=== PATIENT | male | born 1965 ===

== ENCOUNTER 2018-03-01 12:11 | Day surgery (SDC) | payer MEDICARE ==
[~2018-03-01 12:11] MED LIST: Bacitracin 500 Units/gm Oint Foilpak UD ONE; Bupivacaine 0.25% 20 ML INJ IJ ONE; Lidocaine Hydrochloride 10 ML INJ ONE; ceFAZolin IV 1 gm in Dextrose 2 GM/100 ML BAG IVPB ONE
[2018-03-01] MEDS ORDERED: Propofol 10 mg/ml Inj (20 ML) ONE (13:20)
[2018-03-01] MEDS ORDERED: Midazolam 2 MG/2 ML VIAL ONE (13:20)
[2018-03-01] MEDS ORDERED: Ciprofloxacin 400mg/200ml D5W 400 MG/200 ML BAG IVPB ONE (13:23)
[2018-03-01] MEDS ORDERED: Lidocaine Hydrochloride 5 ML INJ ONE (13:46)
[2018-03-01] MEDS ORDERED: Lactated Ringer's 1,000 ML IV SCH (14:15)
--- NOTE | 2018-03-01 14:38 | PCM.SURG1 ---
Surgeon's Initial Post Op Note - Surgeon's Notes Surgeon: maurizio Special Effects Makeup Artist: none Type of Anesthesia: General IV Anesthesia Administered By: Pre-Operative Diagnosis: phimosis.penile papillomas. Operative Findings: phimosis.penile papillomas Post-Operative Diagnosis: phimosis penile papillomas. Operation Performed: circumcision fulguration penile papillomas. Specimen/Specimens Removed: penile foreskin.penile papillomas Estimated Blood Loss: EBL {In ML}: 5 Blood Products Given: N/A Drains Used: No Drains Post-Op Condition: Good Date of Surgery/Procedure: 03/01/18 Time of Surgery/Procedure: 14:41
[2018-03-01] MEDS ORDERED: Lactated Ringer's 1,000 ML IV ONE (15:30)
[2018-03-01 17:50] VITALS: BP 122/71; PULSE 62; RESP 16; TEMP 97.8; O2SAT 97
--- NOTE | 2018-03-08 23:11 | OP ---
PROCEDURE DATE: 03/01/2018 PREOPERATIVE DIAGNOSIS: Phimosis, multiple penile papilloma. POSTOPERATIVE DIAGNOSIS: Phimosis, multiple penile papilloma. OPERATION: Circumcision, excision, and fulguration of penile papilloma. SURGEON: Clemente Jason MD. GROSS FINDINGS: Multiple viral papilloma or prepuce papilloma of dorsal and ventral aspect of the penis. Papilloma of the right and left lip of meatus, phimosis. TECHNIQUE: This patient was placed in lithotomy position. The external genitalia were prepped and draped in the usual sterile fashion. A ventral and dorsal slit incisions were performed. Two flaps of mucosa on the skin were developed. The flaps were excised. Bleeders were thoroughly fulgurated. Some bleeders were clamped and ligated with 3-0 chromic. After this was accomplished, interrupted stitches of 3-0 chromic were applied to approximate mucosa on the skin. Then after this accomplished, excise papilloma of the lip of the meatus were accomplished and the area was fulgurated. The procedure was terminated. Xylocaine 1%, Marcaine 0.5% were injected in the base of the penile for controlling of pain. Dressing was applied. The patient withstood the procedure well and returned to recovery room in satisfactory condition. Clemente Jason MD
== END 2018-03-01 17:44 | disposition home or self-care (01) ==
LOC: C.SDS 12:11
PROVIDERS: ATTEND Urology
DX: N47.1 Phimosis (principal); A63.0 Anogenital (venereal) warts
CPT/HCPCS: 54055; 54161; 82948; 88305; J0690; J2250; J2704; J3010; J7120